=== PATIENT | female | born 1990 | race Two or more races ===

== ENCOUNTER 2022-09-17 09:31 | Day surgery (SDC) | payer OTHER ==
[~2022-09-17] VITALS: Ht 152.4 cm; Wt 48.1 kg
== END 2022-09-17 21:20 | disposition home or self-care (01) ==
LOC: CIR.AMB 09:31
PROVIDERS: ATTEND Colon & Rectal Surgery
DX: K60.3 Anal fistula (principal); K64.4 Residual hemorrhoidal skin tags; L92.9 Granulomatous disorder of the skin and subcutaneous tissue, unspecified; Z20.822 Contact with and (suspected) exposure to COVID-19